=== PATIENT | male | born 1990 | race Caucasian/White ===

== ENCOUNTER 2016-12-09 15:17 | Emergency (ER) | payer MEDICAID ==
[2016-12-09] MEDS ORDERED: Tetracaine 0.5% OPTH.SOL 4 ML* 1 DROP BTL RIGHT EYE ONE (16:18)
[2016-12-09] MEDS ORDERED: BSS OPTH.SOL* BTL OPHTHALMIC ONE (16:20)
[2016-12-09] MEDS ORDERED: Fluorescein Sodium TOPICAL* 1 MG TEST OPHTHALMIC ONE (16:20)
--- NOTE | 2016-12-09 16:28 | UC ---
Eye Complaint HPI - HPI Summary HPI Summary: Patient was hit by a high tensile fence post when it sprang back, a nail got him in the eye and the upper and lower lid are swollen and bruised, painful around the zygomatic arch. vision is blurry, having difficulty opening his eye - History of Current Complaint Chief Complaint: UCEye Stated Complaint: RT EYE INJURY Time Seen by Provider: 12/09/16 16:09 Hx Obtained From: Patient Onset/Duration: Sudden Onset, Lasting Hours Timing: Constant Severity Initially: Severe Severity Currently: Severe Location of Injury: Conjunctiva, Globe, Eye Lid (lower), Eye Lid (upper), Sclera Character: Sharp, Throbbing, Foreign Body Sensation Aggravating Factor(s): Light, Contact Lens Alleviating Factor(s): Other Associated Signs And Symptoms: Positive: Drainage (Clear), Vision Impairment Right, Swelling - Risk Factors Penetrating Injury Risk Factor: Projectile Acute Glaucoma Risk Factors: Eye Inflammation, Eye Trauma - Allergies/Home Medications Allergies/Adverse Reactions: Allergies Allergy/AdvReac Type Severity Reaction Status Date / Time Aloe Allergy Itching Verified 12/09/16 16:14 Home Medications: Home Medications NK [No Home Medications Reported] 12/09/16 [History Confirmed 12/09/16] PMH/Surg Hx/FS Hx/Imm Hx Previously Healthy: Yes - Surgical History Surgical History: Yes Surgery Procedure, Year, and Place: HERNIA REPAIRS X 3 - Family History Known Family History: Positive: Hypertension, Diabetes - Social History Alcohol Use: None Substance Use Type: None Smoking Status (MU): Current Every Day Smoker Type: Cigarettes, Smokeless Tobacco Amount Used/How Often: 1/2 PPD Length of Time of Smoking/Using Tobacco: 7 YRS Have You Smoked in the Last Year: Yes Review of Systems Constitutional: Negative Skin: Bruising - right eye Eyes: Blurred Vision, Drainage, Eye Redness, Photophobia ENT: Negative Respiratory: Negative Cardiovascular: Negative Gastrointestinal: Negative Genitourinary: Negative Motor: Negative Neurovascular: Negative Musculoskeletal: Negative Neurological: Negative Psychological: Negative All Other Systems Reviewed And Are Negative: Yes Physical Exam Triage Information Reviewed: Yes Vital Signs: Initial Vital Signs Temp 98.8 F 12/09/16 16:12 Pulse 78 12/09/16 16:12 Resp 16 12/09/16 16:12 BP 119/78 12/09/16 16:12 Pulse Ox 99 12/09/16 16:12 Vital Signs Reviewed: Yes Eyes: Positive: Other: - sclera is inflammed, right pupil less reactive, hyphema present, uptake of flourescene noted at 10 oclock, EOMI intact, upper and lower lids bruised, hyphema present ENT Exam: Normal ENT: Positive: Hearing grossly normal, Pharynx normal, TMs normal Dental Exam: Normal Neck exam: Normal Neck: Positive: Supple, Nontender, No Lymphadenopathy Respiratory Exam: Normal Respiratory: Positive: Chest non-tender, Lungs clear, Normal breath sounds Cardiovascular Exam: Normal Cardiovascular: Positive: RRR, No Murmur, Pulses Normal Abdominal Exam: Normal Abdomen Description: Positive: Nontender, No Organomegaly, Soft Bowel Sounds: Positive: Present Musculoskeletal Exam: Normal Neurological Exam: Normal Psychological Exam: Normal Skin Exam: Normal Eye Complaint Course/Dx - Course Course Of Treatment: hx obtained, exam performed ,meds reviewed, CT of facial bones, visual acuity, flourescene exam performed transferred to [facility] for further evaluation - Differential Dx/Diagnosis Differential Diagnosis/HQI/PQRI: Corneal Abrasion, Hyphema, Penetrating Injury Provider Diagnoses: Hypema, corneal abraision. blurred vision - Physician Notification/Consults Discussed Patient Care With: [facility] transfer compliance coordinator - Discharge Plan Condition: Stable Disposition: TRANS [facility] OF CARE FAC
[2016-12-09] MEDS ORDERED: Fluorescein Sodium TOPICAL* 1 MG TEST ONE ×2 (16:40)
--- NOTE | 2016-12-09 16:41 | RAD ---
Indication: Right thigh swelling and injury. CT of the facial bones with special attention to the right orbit was obtained. Coronal and sagittal reconstructed images were obtained. The paranasal sinuses are clear. No evidence of fracture is noted. No evidence of fracture is noted. The orbits are intact. Nasal arch and nasal spine are intact. Zygomatic arch demonstrates no fracture. The maxillary sinuses, medial wall of the orbits are unremarkable. The mandible is intact. The pterygoid plate is intact. The visualized portions of the skull base are intact. Temporomandibular joints are unremarkable. IMPRESSION: No fracture of the facial bones is identified.
[2016-12-09 17:00] VITALS: BP 112/75
== END 2016-12-09 17:11 | disposition short-term general hospital (02) ==
LOC: UCCORT 15:17
DX: H21.01 Hyphema, right eye (principal); S05.01XA Injury of conjunctiva and corneal abrasion without foreign body, right eye, initial encounter; W20.8XXA Other cause of strike by thrown, projected or falling object, initial encounter; H53.8 Other visual disturbances
CPT/HCPCS: 70486; 99213; A9270-GY; G0463

== ENCOUNTER 2018-03-12 13:27 | Emergency (ER) | payer OTHER ==
[2018-03-12 14:11] VITALS: BP 117/70
[2018-03-12] MEDS ORDERED: Albuterol 2.5 MG/3 ML NEB.SOL* (0.083%) INH ONE (14:20)
--- NOTE | 2018-03-12 14:37 | RAD ---
HISTORY: cough, f/c's COMPARISONS: None VIEWS: 4: Frontal dual-energy and lateral views of the chest. FINDINGS: CARDIOMEDIASTINAL SILHOUETTE: The cardiomediastinal silhouette is normal. LESTER: The lester are normal. PLEURA: The costophrenic angles are sharp. No pleural abnormalities are noted. LUNG PARENCHYMA: The lungs are clear. ABDOMEN: The upper abdomen is clear. There is no subphrenic gas. BONES AND SOFT TISSUES: No bone or soft tissue abnormalities are noted. OTHER: None. IMPRESSION: NO ACTIVE CARDIOPULMONARY DISEASE.
--- NOTE | 2018-03-12 14:41 | UC ---
General HPI - HPI Summary HPI Summary: Patient states that he was diagnosed with pneumonia by the [facility] emergency room 3 weeks ago. He's had presented with cough and abdominal discomfort. He had a CT and states he was diagnosed with pneumonia. He was treated with penicillin and doxycycline. He presents today for ongoing cough, chest congestion and at times he feels short of breath and wheezy with hard coughing. He smokes one third pack per day. He denies any history of asthma. His called [facility] but they were unable to see him today. He was offered an appointment for tomorrow but came here instead. Patient states that he was sent home from work today due to his persistent congested cough. - History of Current Complaint Chief Complaint: UCRespiratory Stated Complaint: COUGH Time Seen by Provider: 03/12/18 14:05 Hx Obtained From: Patient, Family/Office Coordinator Receptionist Onset/Duration: Gradual Onset Timing: Constant Pain Intensity: 0 Associated Signs & Symptoms: Positive: Cough, Fever, SOB, Wheezing - Allergy/Home Medications Allergies/Adverse Reactions: Allergies Allergy/AdvReac Type Severity Reaction Status Date / Time aloe Allergy Rash Verified 03/12/18 14:06 Home Medications: Home Medications guaiFENesin LIQ* [Robitussin*] 10 ml PO Q4H PRN 03/12/18 [History Confirmed 10/23] PMH/Surg Hx/FS Hx/Imm Hx Respiratory History: Pneumonia Neurological History: Seizures - Surgical History Surgical History: Yes Surgery Procedure, Year, and Place: Herniorrhapies - Family History Known Family History: Positive: Hypertension, Diabetes - Social History Occupation: Employed Full-time Lives: With Family Alcohol Use: None Substance Use Type: None Smoking Status (MU): Light Every Day Tobacco Smoker Type: Cigarettes Amount Used/How Often: 1/3 PPD Length of Time of Smoking/Using Tobacco: Since Age 16 Have You Smoked in the Last Year: Yes - Immunization History Vaccination Up to Date: Yes Review of Systems Constitutional: Fever - Subjective subjective, Chills Skin: Negative Eyes: Negative ENT: Negative Respiratory: Shortness Of Breath, Cough Cardiovascular: Negative Gastrointestinal: Negative Genitourinary: Negative Motor: Negative Neurovascular: Negative Musculoskeletal: Negative Neurological: Negative Psychological: Negative Is Patient Immunocompromised?: No All Other Systems Reviewed And Are Negative: Yes Physical Exam Triage Information Reviewed: Yes Completion Of Physical Exam Limited Due To: Extremis Vital Signs: Initial Vital Signs Temp 98.2 F 03/12/18 14:03 Pulse 82 03/12/18 14:03 Resp 18 03/12/18 14:03 BP 117/70 03/12/18 14:03 Pulse Ox 97 03/12/18 14:03 Vital Signs Reviewed: Yes Eyes: Positive: Conjunctiva Clear ENT: Positive: Pharynx normal, TMs normal. Negative: Nasal congestion, Nasal drainage Neck: Positive: Supple, Nontender, No Lymphadenopathy Respiratory: Positive: Decreased breath sounds, Wheezing - RLL cleared with cough., Other: - Cough is congested and bronchospastic Cardiovascular: Positive: RRR, No Murmur Abdomen Description: Positive: Nontender, No Organomegaly, Soft Bowel Sounds: Positive: Present Musculoskeletal: Positive: ROM Intact Neurological: Positive: Alert Psychological: Positive: Age Appropriate Behavior Skin Exam: Other - [place] and moist Diagnostics - Radiology No standard instances Radiology Interpretation Completed By: Radiologist - CXR=NO ACTIVE CARDIOPULMONARY DISEASE. Re-Evaluation - Re-Evaluation First Eval Re-Evaluation Time: 15:02 Change: Improved - BETTER AERATION. RAISED SOME SECRETIONS. NOTES EASIER TO BREATHE. Course/Dx - Course Course Of Treatment: Nontoxic. Not hypoxic. No fever at time of exam. cxr= nad. case d/w Dr Dodge. will tx with po steroids and albuterol mdi with spacer plus close f/u. - Differential Dx - Multi-Symptom Provider Diagnoses: Cough and bronchospasm post hx recent pneumonia Discharge - Sign-Out/Discharge Documenting (check all that apply): Patient Departure All imaging exams completed and their final reports reviewed: Yes - Discharge Plan Condition: Stable Disposition: HOME Prescriptions: Albuterol HFA INHALER* [Ventolin HFA Inhaler*] 2 puff INH Q6H #1 mdi predniSONE TAB* [Deltasone 20 MG TAB*] 40 mg PO DAILY 5 Days #10 tab Patient Education Materials: Acute Cough (ED), Bronchospasm (ED) Forms: *Work Release Referrals: ELVIN Elizabeth [Medical Doctor] - 5 Days Additional Instructions: USE SPACER WITH THE INHALER. GO DIRECTLY TO THE ER FOR ANY WORSENING. - Billing Disposition and Condition Condition: STABLE Disposition: Home
== END 2018-03-12 15:14 | disposition home or self-care (01) ==
LOC: UCCORT 13:27
DX: R05 Cough (principal); J98.01 Acute bronchospasm; F17.210 Nicotine dependence, cigarettes, uncomplicated
CPT/HCPCS: 71046; 99212; G0463